=== PATIENT | female | born 1980 | race African-American/Black ===

== ENCOUNTER 2019-02-27 19:30 | Emergency (ER) | payer OTHER ==
[~2019-02-27] VITALS: Ht 165.1 cm; Wt 70.3 kg
[2019-02-27 20:10] VITALS: BP 129/83
--- NOTE | 2019-02-27 20:10 | NUR ---
ED Nurse Note: PAtient walked in with complaints of potassium imbalance per her MD.
--- NOTE | 2019-02-27 20:17 | NUR ---
ED Nurse Note: Patient has at bedside, reports feeling tingling sensation in extremities.
--- NOTE | 2019-02-27 20:46 | NUR ---
ED Nurse Note: ERMD at bedside.
[2019-02-27 20:51] LABS: ANION GAP 21 mmol/L (5-15); BLOOD UREA NITROGEN 4 mg/dL (7-18); CALCIUM 9.1 MG/DL (8.5-10.1); CARBON DIOXIDE 21 MMOL/L (21-32); CHLORIDE 100 MMOL/L (98-107); CREATININE 0.9 MG/DL (0.55-1.30); POTASSIUM 3.1 MMOL/L (3.5-5.1); SODIUM 142 MMOL/L (136-145)
[2019-02-27 20:58] LABS: ALANINE AMINOTRANSFERASE 26 U/L (12-78); ALBUMIN/GLOBULIN RATIO 1.3 (1.0-2.7); ALKALINE PHOSPHATASE 56 U/L (46-116); ASPARTATE AMINO TRANSFERASE 21 U/L (15-37); BILIRUBIN,TOTAL 0.4 MG/DL (0.2-1.0)
[2019-02-27 21:00] LABS: EOSINOPHILS % (AUTO) 1.3 % (0.0-3.0); HEMATOCRIT 37.1 % (37.0-47.0); HEMOGLOBIN 12.8 G/DL (12.0-16.0); LYMPHOCYTES % (AUTO) 49.8 % (20.0-45.0); MEAN CORPUSCULAR VOLUME 84 FL (80-99); MONOCYTES % (AUTO) 11.5 % (1.0-10.0); NEUTROPHILS % (AUTO) 35.4 % (45.0-75.0); PLATELET COUNT 233 K/UL (150-450); RED BLOOD COUNT 4.42 M/UL (4.20-5.40); RED CELL DISTRIBUTION WIDTH 12.7 % (11.6-14.8)
--- NOTE | 2019-02-27 21:54 | Emergency Room Report ---
History of Present Illness General Chief Complaint: Abnormal Labs Source: Patient Present Illness HPI This is a 38-year-old female who is on a special water diaper about a month and started eating her proper food and started feeling very nauseous with some dizziness. She had blood work drawn about a week ago noted potassium was low however, she was advised for controlling it with high potassium food. Today she states that she became more dizzy. No other associated symptoms. No nausea or vomiting. No exacerbating or relieving factor. Allergies: Coded Allergies: No Known Allergies (Unverified , 02/27/19) Patient History Past Surgical History: none Pertinent Family History: none Last Menstrual Period: 02-06-2019 Now: No Nursing Documentation-PMH Past Medical History: No Stated History Review of Systems All Other Systems: negative except mentioned in HPI Physical Exam Vital Signs Date Time Temp Pulse Resp B/P (MAP) Pulse Ox O2 Delivery O2 Flow Rate FiO2 02/27/19 19:52 98.4 102 16 134/85 99 Room Air General Appearance: well appearing, no apparent distress Head: normocephalic, atraumatic ENT: hearing grossly normal, normal voice Neck: full range of motion, supple Respiratory: no respiratory distress, speaking full sentences Musculoskeletal: no calf tenderness Neurologic: alert, normal gait Psychiatric: mood/affect normal Skin: no rash Medical Decision Making Diagnostic Impression: Primary Impression: Hypokalemia ER Course Patient was emergently seen and evaluated appears very concerned about metabolic abnormal. The patient does have a mild hypokalemia and therefore, was given potassium supplement. I reexamined the patient. The patient will. No evidence of syncope. The patient's vital signs are within normal limits. Her initial examination is normal and repeat examination is normal as well. At this time, the patient will be discharged home with very close follow-up with her primary care physician to return to the change in symptoms or worsening symptoms. Laboratory Tests Test 02/27/19 20:28 White Blood Count 7.0 K/UL (4.8-10.8) Red Blood Count 4.42 M/UL (4.20-5.40) Hemoglobin 12.8 G/DL (12.0-16.0) Hematocrit 37.1 % (37.0-47.0) Mean Corpuscular Volume 84 FL (80-99) Mean Corpuscular Hemoglobin 29.0 PG (27.0-31.0) Mean Corpuscular Hemoglobin Concent 34.6 G/DL (32.0-36.0) Red Cell Distribution Width 12.7 % (11.6-14.8) Platelet Count 233 K/UL (150-450) Mean Platelet Volume 6.4 FL (6.5-10.1) L Neutrophils (%) (Auto) 35.4 % (45.0-75.0) L Lymphocytes (%) (Auto) 49.8 % (20.0-45.0) H Monocytes (%) (Auto) 11.5 % (1.0-10.0) H Eosinophils (%) (Auto) 1.3 % (0.0-3.0) Basophils (%) (Auto) 2.0 % (0.0-2.0) Sodium Level 142 MMOL/L (136-145) Potassium Level 3.1 MMOL/L (3.5-5.1) L Chloride Level 100 MMOL/L (98-107) Carbon Dioxide Level 21 MMOL/L (21-32) Anion Gap 21 mmol/L (5-15) H Blood Urea Nitrogen 4 mg/dL (7-18) L Creatinine 0.9 MG/DL (0.55-1.30) Estimate Glomerular Filtration Rate > 60 mL/min (>60) Glucose Level 78 MG/DL (74-106) Calcium Level 9.1 MG/DL (8.5-10.1) Total Bilirubin 0.4 MG/DL (0.2-1.0) Aspartate Amino Transferase (AST) 21 U/L (15-37) Alanine Aminotransferase (ALT) 26 U/L (12-78) Alkaline Phosphatase 56 U/L (46-116) Total Protein 7.2 G/DL (6.4-8.2) Albumin 4.0 G/DL (3.4-5.0) Globulin 3.2 g/dL Albumin/Globulin Ratio 1.3 (1.0-2.7) Human Chorionic Gonadotropin, Quant < 1 mIU/mL (1-6) L EKG Diagnostic Results EKG Time: 21:52 Rate: normal Rhythm: NSR ST Segments: no acute changes Rhythm Strip Diag. Results Rhythm Strip Time: 21:52 EP Interpretation: yes Rhythm: NSR Last Vital Signs Date Time Temp Pulse Resp B/P (MAP) Pulse Ox O2 Delivery O2 Flow Rate FiO2 02/27/19 20:10 98.4 72 13 129/83 100 Room Air Disposition: HOME, SELF-CARE Condition: Stable Scripts No Active Prescriptions or Reported Meds Referrals: NON PHYSICIAN (PCP) Patient Instructions: Hypokalemia NATALIA MONTERO Feb 27, 2019 21:54
--- NOTE | 2019-02-27 22:19 | NUR ---
ED Nurse Note: Patent cleared for discharge, accompaned by , departed with all personal belongings, ID band removed, IV removed. patient verbalized understanding of discharge instructions.
[2019-02-27 22:20] VITALS: BP 129/83
== END 2019-02-27 22:21 | disposition home or self-care (01) ==
LOC: EMR 20:24
DX: E87.6 Hypokalemia (principal)
CPT/HCPCS: 36415; 80053; 84702; 85025; 93005; 99284; J8499